=== PATIENT | female | born 1985 | race Caucasian/White ===

== ENCOUNTER 2016-08-19 18:34 | Inpatient (IN) | payer OTHER ==
[2016-08-19] MEDS ORDERED: EPSOM SALT 454 GM TP PRN (19:17)
[2016-08-19] MEDS ORDERED: LIDOCAINE 1% 30 ML SDV SC PRN (19:17)
[2016-08-19] MEDS ORDERED: OLIVE OIL 118 ML BTL MISC PRN (19:17)
[2016-08-19] MEDS ORDERED: OXYTOCIN/RINGERS LACTATE 1,000 ML IV PRN (19:17)
[2016-08-19] MEDS ORDERED: LR 1,000 ML IV PRN (19:17)
[2016-08-19] MEDS ORDERED: TERBUTALINE SULFATE 1 MG/ML VIAL IV PRN (19:17)
[2016-08-19] MEDS ORDERED: BETAMETHASONE IM SYRINGE IM ONE (19:20)
[2016-08-19 19:35] LABS: % IMMATURE GRANULYOCYTES 0.3 % (0.0-1.1); ABSOLUTE IMMATURE GRANULOCYTES 0.04 10^3/uL (0.00-0.10); ADD DIFF? NO; ADD MORPH? NO; ADD SCAN? NO; ATYPICAL LYMPHOCYTE FLAG 10 (0-99); FRAGMENT RBC FLAG 0 (0-99); HEMATOCRIT 36.9 % (38.0-47.0); HEMOGLOBIN 12.8 g/dL (12.6-16.3); LEFT SHIFT FLG 0 (0-99); LIPEMIA HEMOLYSIS FLAG 90 (0-99); MEAN CELL HEMOGLOBIN 30.9 pg (27.9-34.1); MEAN CELL HEMOGLOBIN CONCENTR. 34.7 g/dL (32.4-36.7); MEAN CELL VOLUME 89.1 fL (81.5-99.8); MEAN PLATELET VOLUME 11.7 fL (8.7-11.7); PLATELET CLUMPS FLAG 0 (0-99); PLATELET COUNT 176 10^3/uL (150-400); RED BLOOD CELL COUNT 4.14 10^6/uL (4.18-5.33); RED CELL DISTRIBUTION WIDTH 12.2 % (11.5-15.2)
[2016-08-19 19:49] LABS: ALANINE AMINOTRANSFERASE 29 IU/L (9-52); ASPARTATE AMINOTRANSFERASE 28 IU/L (14-46); BILIRUBIN,TOTAL 0.4 mg/dL (0.1-1.4); BILIRUBIN-CONJUGATED 0.2 mg/dL (0.0-0.5); BILIRUBIN-UNCONJUGATED 0.2 mg/dL (0.0-1.1); CREATININE 0.5 mg/dL (0.6-1.0); GLOMERULAR FILTRATION RATE > 60; LACTATE DEHYDROGENASE 420 IU/L (313-618); URIC ACID 4.7 mg/dL (2.5-6.8)
--- NOTE | 2016-08-19 20:26 | GHP ---
[f rep st] HISTORY AND PHYSICAL DATE OF ADMISSION: 08/19/2016 ADMISSION DIAGNOSES: 1. Intrauterine at 35-1/7 weeks' gestation. 2. premature rupture of membranes. HISTORY OF PRESENT ILLNESS: Patient is a 31-year-old, 1, para 0-0-1-0, who is 35-1/7 weeks' gestation. She was lying on her bed this evening and had a big gush of fluid. She has had continu al leaking since then and has been noted to be grossly ruptured. She was not having any contraction s until arriving to labor and deliver, she but she began having menstrual cramping. status is reassuring. She denies any vaginal bleeding and is having mild cramping. MEDICAL HISTORY: Significant for cervical dysplasia and a history of anxiety and depression in the past. PAST MEDICATIONS: vitamins and iron. SURGICAL HISTORY: LEEP excision of her cervix and appendectomy. ALLERGIES: No known drug allergies. SOCIAL HISTORY: Patient is . She denies tobacco, alcohol, and drug use. FAMILY MEDICAL HISTORY: Noncontributory. LOCAL [employer]IVER HISTORY: Menarche age 13. Periods every 28 days, lasting 5 days. She is a 1, para 0. has been uncomplicated. She has had some anxiety issues in but has been doi ng well recently. Patient does have a history of an abnormal Pap smear. She had a LEEP excision of her cervix in 2005 and repeat Pap's have been negative since then. Patient has a history of HPV bu t denies any history of any sexually transmitted diseases. REVIEW OF SYSTEMS: A 10-point review of systems is negative with the exception of the positive leak ing of fluid. She is stating good movement. Denies any headache, changes in vision, nausea, vomiting, fevers, or chills. PHYSICAL EXAMINATION: VITAL SIGNS: Stable. On presentation had blood pressure of 144/99, 146/104, and 150/103, but they have decreased now to 139/88 and 123/81. GENERAL APPEARANCE: Alert and orie nted x3. She does not appear to be in pain. PSYCH: Appropriate affect. NECK: Supple and there i s no thyromegaly. HEART: Rate is regular. LUNGS: Clear to auscultation bilaterally. ABDOMEN: G ravid, nondistended, nontender. EXTREMITIES: No calf tenderness or edema. PELVIC: Deferred. She is noted to be grossly ruptured. is in the vertex presentation. heart tracings are c ategory 1, and she is having only occasional contractions. LABORATORY: Blood type O positive, antibody screen negative, rubella immune, GBS is unknow n, HBsAg negative, HIV negative. Her 50 g glucose was 126. She did a serum alpha fetoprotein, whic h was negative and A Verifi screen which was negative. Preeclampsia labs were all negative. ASSESSMENT/PLAN: A 31-year-old, 1 para 0, at 35-1/7 weeks' gestation with premature rupture of membranes and borderline elevated blood pressures. Patient has received betamethasone x 1. A GBS culture was collected. She will be started on ampicillin for GBS unknown status, and will be managed expectantly. She will receive a 2nd dose of betamethasone at 24 hours, but obviously we will not do this if she has delivered before then. If her blood pressures are persistently elevate d, she will be augmented. /[id number]/MODL
[2016-08-19] MEDS ORDERED: LIDOCAINE 1% 30 ML SDV ONE (20:36)
[2016-08-19] MEDS ORDERED: AMMONIA AROMATIC 1 EACH AMP IH ONE (20:36)
[2016-08-19] MEDS ORDERED: TERBUTALINE SULFATE 1 MG/ML VIAL ONE (20:36)
[2016-08-19] MEDS ORDERED: MISOPROSTOL 200 MCG TAB ONE (20:36)
[2016-08-19] MEDS ORDERED: OLIVE OIL 118 ML BTL ONE (20:36)
[2016-08-19] MEDS ORDERED: OXYTOCIN 10 UNIT/ML VIAL ONE (20:36)
[2016-08-19] MEDS ORDERED: AMPICILLIN SODIUM 2 GM in NS 100 ML IV ONE (21:00)
[2016-08-19] MEDS ORDERED: PHENYLEPHRINE HCL 100 MCG/ML SYR ONE (22:26)
[2016-08-19] MEDS ORDERED: fentaNYL 2MCG/ML/BUP 0.1% RTU 100 ML BAG EP ONE (22:26)
[2016-08-19] MEDS ORDERED: LR 500 ML IV SCH (23:00)
[2016-08-19] MEDS ORDERED: fentaNYL 2MCG/ML/BUP 0.1% RTU 100 ML EP SCH (23:00)
--- NOTE | 2016-08-19 23:11 | OBPROG ---
OBG Progress Note Assessment/Plan: Assessment: Plan: Subjective: patient comfortable with epidural. progressed into active labor. status reassurign. BP's stable. Objective: 08/19/16 19:24 08/19/16 19:24 Patient ABO/Rh O POSITIVE 08/19/16 19:24 Uric Acid 4.7 mg/dL (2.5-6.8) 08/19/16 19:24 Total Bilirubin 0.4 mg/dL (0.1-1.4) 08/19/16 19:24 Conjugated Bilirubin 0.2 mg/dL (0.0-0.5) 08/19/16 19:24 Unconjugated Bilirubin 0.2 mg/dL (0.0-1.1) 08/19/16 19:24 AST 28 IU/L (14-46) 08/19/16 19:24 ALT 29 IU/L (9-52) 08/19/16 19:24 Lactate Dehydrogenase 420 IU/L (313-618) 08/19/16 19:24 - SVE Dilation (cm): 4, 5 Effacement (%): 100 Station: -1 Current Contraction Pattern: Regular FHR Pattern Variability: Moderate FHR Category: 1 Membranes: AROM Amniotic Fluid Color: Clear ICD10 Worksheet Patient Problems: Problems Problem Status Onset First stage of labor Acute premature rupture of membranes Acute
[2016-08-20] MEDS: AMPICILLIN SODIUM 1 GM in NS 100 ML IV SCH ×2 (00:04→09:53)
[2016-08-20] MEDS ORDERED: HYDROCORTISONE 0.5% CREAM TP PRN (01:03)
[2016-08-20] MEDS ORDERED: SIMETHICONE 80 MG TAB CHEW PO PRN (01:03)
[2016-08-20] MEDS ORDERED: ACETAMINOPHEN 325 MG TAB PO PRN (01:03)
--- NOTE | 2016-08-20 01:14 | OBPROG ---
OBG Progress Note Assessment/Plan: Assessment: Plan: Subjective: patient feeing much more pain in right buttock. positioned into hands and knees. pressure applied to area during contraction helps. status reassuring. Objective: 08/19/16 19:24 08/19/16 19:24 Patient ABO/Rh O POSITIVE 08/19/16 19:24 Uric Acid 4.7 mg/dL (2.5-6.8) 08/19/16 19:24 Total Bilirubin 0.4 mg/dL (0.1-1.4) 08/19/16 19:24 Conjugated Bilirubin 0.2 mg/dL (0.0-0.5) 08/19/16 19:24 Unconjugated Bilirubin 0.2 mg/dL (0.0-1.1) 08/19/16 19:24 AST 28 IU/L (14-46) 08/19/16 19:24 ALT 29 IU/L (9-52) 08/19/16 19:24 Lactate Dehydrogenase 420 IU/L (313-618) 08/19/16 19:24 - SVE Dilation (cm): 8 Effacement (%): 100 Station: +1 Current Contraction Pattern: Regular FHR (bpm): 120 FHR Pattern Variability: Moderate FHR Category: 1 Membranes: AROM Amniotic Fluid Color: Clear ICD10 Worksheet Patient Problems: Problems Problem Status Onset First stage of labor Acute premature rupture of membranes Acute
[2016-08-20] MEDS: IBUPROFEN 600 MG TAB PO PRN ×2 (09:58→17:11)
[2016-08-20] MEDS: DOCUSATE SODIUM 100 MG CAP PO PRN ×2 (09:59→21:36)
--- NOTE | 2016-08-20 10:13 | SOAPPROG ---
SOAP Progress Note Assessment/Plan: Assessment: ppd# 0 s/p will start pumping and breast feeding elevated blood pressures in labor - stable Plan: routine post care continue to monitor blood pressures 08/20/16 10:11 Subjective: patient is doing well. baby just came off cpap and is doing skin to skin with her. very happy with labor and delivery. pain is well controlled. did not get any sleep last night. normal lochia. denies headache and changes in vision. Objective: Vital Signs Temp Pulse Resp BP Pulse Ox 36.6 C 80 16 124/87 H 94 08/20/16 07:58 08/20/16 07:58 08/20/16 07:58 08/20/16 07:58 08/20/16 07:58 Laboratory Results 08/19/16 19:24 08/19/16 19:24 08/19/16 08/20/16 08/21/16 05:59 05:59 05:59 Output Total 200 Balance -200 Physical Exam - Physical Exam General Appearance: WD/WN, alert, no apparent distress Respiratory: chest non-tender, lungs clear, normal breath sounds Cardiac/Chest: normal peripheral pulses, regular rate, rhythm Abdomen: normal bowel sounds, non-tender, soft, other (fundus firm and non tender) Skin: normal color, warm/dry Extremities: normal range of motion, non-tender, normal inspection, normal capillary refill Neuro/Psych: no motor/sensory deficits, alert, normal mood/affect, oriented x 3 ICD10 Worksheet Patient Problems: Problems Problem Status Onset First stage of labor Acute premature rupture of membranes Acute
--- NOTE | 2016-08-20 10:25 | OBPROC ---
- Labor and Delivery Onset of Contractions Date: 08/20/16 Onset of Contractions Time: 20:30 Onset of Contractions Type: Spontaneous Rupture of Membranes Date: 08/20/16 Rupture of Membranes Time: 17:45 Rupture of Membranes Type: Spontaneous Amniotic Fluid Color: Clear Dilation Complete Time: 01:32 Delivery Type: Spontaneous Placenta Delivery Date: 08/20/16 Placenta Delivery Time: 02:45 Episiotomy/Laceration: 2nd Degree Repair: 3-0 - Medications Labor Augmentation/Induction Meds Used: None Anesthesia: Epidural - [place] Info Infant A Delivery Date: 08/20/16 Delivery Time: 02:38 Sex of Infant: Male Score (1 Min): 7 Score (5 Min): 8
[2016-08-21] MEDS: IBUPROFEN 600 MG TAB PO PRN ×3 (05:41→20:28)
--- NOTE | 2016-08-21 09:19 | SOAPPROG ---
SOAP Progress Note Assessment/Plan: Assessment: pain well managed scant rubra lochia doing well OK with going home tomorrow or to border perineum minimal swelling, approximated nipples intact/ pumping getting used to voiding without difficulty Plan:discharge to home or border tomorrow doing well 08/21/16 09:17 Subjective: Doing well. Denies pain. with assistance. Pumping nipples intact scant rubra lochia pain well managed voiding without difficulty feeling some rectal pressure pain after delivery discussed ways to assist perineum minimal swelling approximated Objective: Vital Signs Temp Pulse Resp BP Pulse Ox 36.6 C 66 16 128/88 H 98 08/20/16 20:01 08/20/16 20:01 08/20/16 20:01 08/20/16 20:01 08/20/16 20:01 Laboratory Results 08/19/16 19:24 08/19/16 19:24 08/20/16 08/21/16 08/22/16 05:59 05:59 05:59 Output Total 200 Balance -200 - Time Spent With Patient Time Spent With Patient: 15 minutes - Pending Discharge Pending Discharge Within 24 Hours: Yes Pending Discharge Date: 08/22/16 Pending Discharge Time: 11:00 ICD10 Worksheet Patient Problems: Problems Problem Status Onset Delivery normal Acute First stage of labor Acute premature rupture of membranes Acute
[2016-08-21] MEDS: DOCUSATE SODIUM 100 MG CAP PO PRN (09:30)
[2016-08-21] MEDS: HYDROCODONE/APAP 5/325 TAB PO PRN ×3 (09:31→20:26)
[2016-08-22] MEDS: HYDROCODONE/APAP 5/325 TAB PO PRN ×4 (05:43→17:49)
[2016-08-22] MEDS: DOCUSATE SODIUM 100 MG CAP PO PRN (08:48)
[2016-08-22 08:59] VITALS: BP 119/85; PULSE 77; RESP 16; TEMP 98.2; O2SAT 96
[2016-08-22] MEDS ORDERED: POLYETHYLENE GLYCOL 3350 17 GM PKT PO PRN (13:35)
[2016-08-22] MEDS ORDERED: LACTULOSE 20 GM/30 ML UDCUP PO PRN (13:35)
[2016-08-22] MEDS ORDERED: MAGNESIUM HYDROXIDE 30 ML UDCUP PO PRN (13:35)
[2016-08-22] MEDS ORDERED: BISACODYL 10 MG SUPP PR PRN (13:35)
--- NOTE | 2016-08-22 13:39 | OBPROG ---
OBG Progress Note Assessment/Plan: Assessment: 31 y/o PPD #2 s/p @ 35 weeks, SROM and PTD Plan: I ordered bowel protocol today, to try to help wit BM. She will be d/c home to [facility] status Rx [place] and Ibuprofen and follow-up @ [facility] 4 and 6 weeks. 08/22/16 13:39 Subjective: Pt is doing well this am. She is ambulating, voiding without difficulty and her pain is controlled with Ibuprofen and [place]. She has not had a BM yet and feels somewhat constipated. Her milk is coming in and she is nursing and pumping. Baby is doing well in NICU on room air. Under lights for bilirubin. She is ready to d/c to [facility]. Objective: 08/19/16 19:24 08/19/16 19:24 Patient ABO/Rh O POSITIVE 08/19/16 19:24 Uric Acid 4.7 mg/dL (2.5-6.8) 08/19/16 19:24 Total Bilirubin 0.4 mg/dL (0.1-1.4) 08/19/16 19:24 Conjugated Bilirubin 0.2 mg/dL (0.0-0.5) 08/19/16 19:24 Unconjugated Bilirubin 0.2 mg/dL (0.0-1.1) 08/19/16 19:24 AST 28 IU/L (14-46) 08/19/16 19:24 ALT 29 IU/L (9-52) 08/19/16 19:24 Lactate Dehydrogenase 420 IU/L (313-618) 08/19/16 19:24 Group B Strep DNA NEGATIVE (NEGATIVE) 08/19/16 19:00 Temp Pulse Resp BP Pulse Ox 36.8 C 77 16 119/85 H 96 08/22/16 08:20 08/22/16 08:20 08/22/16 08:20 08/22/16 08:20 08/22/16 08:20 Uterine Position/Fundal Height: Umbilicus -2 Uterine Tone: Firm - Physical Exam General Appearance: WD/WN, alert, no apparent distress Neck: non-tender, full range of motion, supple Respiratory: chest non-tender, lungs clear, normal breath sounds Cardiac/Chest: regular rate, rhythm Abdomen: normal bowel sounds Extremities: swelling (no), Lopez's sign (neg) ICD10 Worksheet Patient Problems: Problems Problem Status Onset Delivery normal Acute First stage of labor Acute premature rupture of membranes Acute
[2016-08-22] MEDS ORDERED: SENNOSIDES/DOCUSATE SODIUM TAB PO SCH (21:00)
== END 2016-08-22 17:50 | disposition home or self-care (01) | DRG 775 ==
LOC: FLD 18:34 → FOB 08-20 03:00
PROVIDERS: ADMIT Obstetrics & Gynecology; ATTEND Obstetrics & Gynecology
PROC: 0KQM0ZZ Repair Perineum Muscle, Open Approach (ICD-10-PCS; principal; 2016-08-19)
PROC: 10E0XZZ Delivery of Products of Conception, External Approach (ICD-10-PCS; principal; 2016-08-19)
DX: O42.913 Preterm premature rupture of membranes, unspecified as to length of time between rupture and onset of labor, third trimester (principal); O70.1 Second degree perineal laceration during delivery; Z3A.35 35 weeks gestation of pregnancy; Z37.0 Single live birth
CPT/HCPCS: J0290; J0702; J2370; J2590; J3105

== ENCOUNTER → 2017-05-08 | Outpatient (CLI) | payer OTHER | LOC: FIMAGING 07:32 | PROVIDERS: ATTEND Obstetrics & Gynecology | DX: O09.92 Supervision of high risk pregnancy, unspecified, second trimester (principal); O09.212 Supervision of pregnancy with history of pre-term labor, second trimester; Z3A.20 20 weeks gestation of pregnancy ==

== ENCOUNTER → 2017-05-24 | Outpatient (CLI) | payer OTHER | LOC: FIMAGING 08:38 | PROVIDERS: ATTEND Obstetrics & Gynecology | DX: O09.212 Supervision of pregnancy with history of pre-term labor, second trimester (principal); O09.292 Supervision of pregnancy with other poor reproductive or obstetric history, second trimester; Z3A.22 22 weeks gestation of pregnancy ==

== ENCOUNTER 2017-06-21 11:04 | Observation (INO) | payer OTHER | END 2017-06-21 12:30 | disposition home or self-care (01) | LOC: FLD 11:04 | PROVIDERS: ADMIT Advanced Practice Midwife; ATTEND Advanced Practice Midwife | DX: Z34.92 Encounter for supervision of normal pregnancy, unspecified, second trimester (principal); Z3A.26 26 weeks gestation of pregnancy | CPT/HCPCS: G0378 ==

== ENCOUNTER 2017-09-09 15:05 | Observation (INO) | payer OTHER ==
--- NOTE | 2017-09-09 17:58 | GHP ---
[f rep st] PREOP HISTORY AND PHYSICAL DATE OF ADMISSION: 09/09/2017 The patient is a 32-year-old, 2, para 0-1-0-1, who was 38 weeks gestation. Her estimated timothy e of confinement is 09/23/2017, dated by last menstrual period consistent with a 1st-trimester ultras ound. Patient was seen in the office last week and was told she was 5 cm dilated. She has been havi ng back pain that has been on and off today which is similar to how she began going into labor with h er 1st so she came in for evaluation. Her cervix was noted to be unchanged since her exam. She is called to be 4-5 cm and still thick and posterior. status was reassuring. She is hav ing contractions, but she is not breathing through them. status was category 1 and reassuring. Options reviewed to the let the patient stay here and recheck her in several hours versus sending t he patient home were discussed with the patient. The patient elected to go home. She was instructed to increase her fluid intake as it is very hot outside and she is somewhat dehydrated and to follow up in the office next week as scheduled. Labor precautions and kick counts were reviewed with the malcolm yoon. The patient was discharged to home. /[id number]/MODL
== END 2017-09-09 19:11 | disposition home or self-care (01) ==
LOC: FLD 15:05 → INTOOBSV 15:05
PROVIDERS: ADMIT Obstetrics & Gynecology; ATTEND Obstetrics & Gynecology
DX: M54.9 Dorsalgia, unspecified (principal); Z3A.38 38 weeks gestation of pregnancy
CPT/HCPCS: 59025; G0378

== ENCOUNTER 2017-09-16 09:28 | Inpatient (IN) | payer OTHER ==
--- NOTE | 2017-09-13 14:03 | GHP ---
[f rep st] HISTORY AND PHYSICAL DATE OF ADMISSION: 09/16/2017 ADMITTING DIAGNOSES: 1. Intrauterine at 39 weeks. 2. Elective induction of labor. HISTORY OF PRESENT ILLNESS: Patient is a 32-year-old 2, para 0-1-0-1, at 39 weeks with estimated due date 09/23/2017 by last menstrual period of 12/17, and consistent with first trimester ultrasound at 7 weeks and 1 day. The patient presents to Labor and Delivery for elective induction of labor. On cervical exam, she is 4-5 cm, 75% effaced, -2 station. Patient states good movement. Admits to irregular contractions, no leakage of fluid, and no vaginal bleeding. Patient has good care at [facility], and presented in her first trimester. Patient's is complicated by a previous history of delivery at 35 weeks and 1 day secondary to PPROM. Patient was on Marly, progesterone injections, through 36 weeks this and had stable cervical lengths up to 30 weeks via ultrasound. This is also a short interval, with her last delivery in July 2016. Patient has history of anxiety and depression, she declined Zoloft in this , but overall mood was stable. Patient has a history of a LEEP, with stable cervical length. The patient did receive Tdap. GBS culture is positive. PAST OB HISTORY: In July 2016, she delivered a viable male at 35 weeks 1 day, weighing 6 pounds 10 ounces, via vaginal delivery secondary to PPROM. PAST NURSING RESIDENT HISTORY: Age of menarche 13. Cycles are every 27-28 days for 4-5 days. LMP 12/17/2016. Positive test 01/17/2017. Patient has a history of abnormal Pap smear and had a LEEP in 2005. Subsequent Pap smears have been negative, including most recent one in October 2016. She also has a history of HPV in 2005. Declines exposure to any other STDs. CURRENT MEDICATIONS: vitamins, DHA. ALLERGIES: No known drug allergies. PAST MEDICAL HISTORY: Pyelonephritis at 5 years of age. Depression and anxiety. PAST SURGICAL HISTORY: Appendectomy at 15 years of age, LEEP in 2005. FAMILY HISTORY: Mother, chronic hypertension. Father, diverticulitis and kidney stones. Maternal grandmother, dementia and stroke. SOCIAL HISTORY: Patient is . She lives with her and their son. She is a homemaker. Denies any alcohol, tobacco, or current illicit drug use. LABS: Blood type is O positive, antibody negative. RPR nonreactive. Rubella immune. Hepatitis B surface antigen negative. HIV negative. Trio screen negative 2015. Pap, gonorrhea, and chlamydia cultures negative. AFP negative. Innatal screen negative. H and H 13.4 and 38.1. One-hour Glucola 82. GBS culture is positive. REVIEW OF SYSTEMS: 10-point review of systems negative. Pertinent positives noted in the HPI. PHYSICAL EXAMINATION: VITAL SIGNS: On admission, vital signs are stable. Patient is afebrile. GENERAL: Well-nourished, well-developed female, alert and oriented x3. SKIN: Warm, dry, no rash. CARDIOVASCULAR: Regular rate and rhythm. LUNGS: Clear to auscultation bilaterally. ABDOMEN: Gravid, soft, nontender, nondistended. PELVIC: Exam was deferred. EXTREMITIES: Normal to inspection without calf tenderness. Noted to have mild edema. ASSESSMENT AND PLAN: Patient is a 32-year-old 2, para 0-1-0-1, at 39 weeks, who presents for an elective induction of labor. 1. Admit to Labor and Delivery. 2. Will start Pitocin per protocol. 3. Will treat with antibiotics for group B streptococcus prophylaxis. 4. After adequate treatment for GBS prophylaxis will AROM. 5. Anticipate vaginal delivery. /[id number]/MODL MTDD
[2017-09-16] MEDS ORDERED: LIDOCAINE 1% 300 MG/30 ML SDV SC PRN (09:39)
[2017-09-16] MEDS ORDERED: EPSOM SALT 454 GM TP PRN (09:39)
[2017-09-16] MEDS ORDERED: IBUPROFEN 600 MG TAB PO PRN (09:39)
[2017-09-16] MEDS ORDERED: OLIVE OIL 118 ML BTL MISC PRN (09:39)
[2017-09-16] MEDS ORDERED: MISOPROSTOL 200 MCG TAB PR PRN (09:39)
[2017-09-16] MEDS ORDERED: AMPICILLIN SODIUM 2 GM in NS 100 ML IV ONE (09:39)
[2017-09-16] MEDS ORDERED: TERBUTALINE SULFATE 1 MG/ML VIAL IV PRN (09:39)
[2017-09-16] MEDS ORDERED: LR 1,000 ML IV PRN (09:39)
[2017-09-16] MEDS ORDERED: OXYTOCIN/RINGERS LACTATE 1,000 ML IV PRN (09:39)
[2017-09-16] MEDS ORDERED: TERBUTALINE SULFATE 1 MG/ML VIAL ONE (09:49)
[2017-09-16] MEDS ORDERED: OLIVE OIL 118 ML BTL ONE (09:49)
[2017-09-16] MEDS ORDERED: OXYTOCIN 10 UNIT/ML VIAL ONE (09:49)
[2017-09-16] MEDS ORDERED: LIDOCAINE 1% 300 MG/30 ML SDV ONE (09:49)
[2017-09-16] MEDS ORDERED: AMMONIA AROMATIC 1 EACH AMP IH ONE (09:49)
[2017-09-16] MEDS ORDERED: MISOPROSTOL 200 MCG TAB ONE (09:50)
[2017-09-16 10:12] LABS: PLATELET COUNT 165 10^3/uL (150-400)
[2017-09-16] MEDS ORDERED: OXYTOCIN/LR *STANDARD DOSE PROTOCOL IV SCH (10:30)
[2017-09-16] MEDS ORDERED: fentaNYL 100 MCG/2 ML INJ ONE (11:33)
[2017-09-16] MEDS ORDERED: PHENYLEPHRINE HCL 100 MCG/ML SYR ONE (11:34)
[2017-09-16] MEDS ORDERED: BUPIVACAINE 0.25% 30 ML SDV ONE (11:34)
--- NOTE | 2017-09-16 11:40 | PDANEPAE ---
ANE History of Present Illness at 39 weeks, in labor, dilated to 5 cm ANE Past Medical History - Cardiovascular History Hx Hypertension: No Hx Arrhythmias: No Hx Chest Pain: No Hx Coronary Artery / Peripheral Vascular Disease: No Hx CHF / Valvular Disease: No Hx Palpitations: No - Pulmonary History Hx COPD: No Hx Asthma/Reactive Airway Disease: No Hx Recent Upper Respiratory Infection: No Hx Oxygen in Use at Home: No Hx Sleep Apnea: No - Neurologic History Hx Cerebrovascular Accident: No Hx Seizures: No Hx Dementia: No - Endocrine History Hx Diabetes: No Hypothyroid: No Hyperthyroid: No Obesity: no - Renal History Hx Renal Disorders: No - Liver History Hx Hepatic Disorders: No - Neurological & Psychiatric Hx Hx Neurological and Psychiatric Disorders: No - Cancer History Hx Cancer: No - GI History GERD: no Hx Gastrointestinal Disorders: No - Chronic Pain History Chronic Pain: No - Surgical History Prior Surgeries: appendectomy ANE Review of Systems Review of Systems: ANE Patient History - Allergies Allergies/Adverse Reactions: No Known Allergies Allergy (Unverified 08/19/16 18:55) - Anes Hx Anes Hx: no prior problems - Smoking Hx Smoking Status: Never smoked Marijuana use: No - Alcohol Use Alcohol Use: Other (1 drink/day before ) - Family Anes Hx Family Anes Hx: none ANE Labs/Vital Signs - Labs Result Diagrams: 09/16/17 09:53 - Vital Signs Height: 154.94 cm Weight: 68.492 kg ANE Physical Exam - Airway Neck exam: FROM Mallampati Score: Class 1 Mouth exam: normal dental/mouth exam - Pulmonary Pulmonary: no respiratory distress - ASA Status ASA Status: II, E ANE Anesthesia Plan Anesthesia Plan: epidural (for labor)
[2017-09-16] MEDS ORDERED: fentaNYL 200 MCG, BUPIVACAINE 0.5% 20 ML in NS 100 ML EP SCH (12:00)
[2017-09-16] MEDS ORDERED: PHENYLEPHRINE HCL 100 MCG/ML SYR IVP PRN (12:08)
[2017-09-16] MEDS ORDERED: fentaNYL 2MCG/ML/BUP 0.1% RTU 100 ML EP SCH (12:30)
[2017-09-16] MEDS: AMPICILLIN SODIUM 1 GM in NS 100 ML IV SCH ×2 (13:44→20:13)
--- NOTE | 2017-09-16 14:36 | OBPROG ---
Labor Progress Note Assessment/Plan: Assessment: 32 y/o @ 39 weeks for elective IOL Plan: Cont current management s/p epidural, pt is comfortable Pitocin at 6 mu/min, cont per protocol s/p Amp x 2 for GBS prophylaxis AROM-large amount of clear fluid noted FHTs - Cat I tracing, reassuring Anticipate 09/16/17 14:42 Subjective/Intrapartum Course: 09/16/17 14:35 Pt is comfortable, s/p epidural but notes itching. Denies any HAs, visual changes, or RUQ/epigastric pain. Objective: 09/16/17 09:53 Patient ABO/Rh O POSITIVE 09/16/17 09:53 - SVE Dilation (cm): 5 (5-6) Effacement (%): 80 Station: -1 Membranes: AROM Amniotic Fluid Color: Clear - Contraction Pattern Assessment Current Contraction Pattern: Regular (q 2 min) - FHR Assessment Taylor FHR (bpm): 130 FHR Pattern Variability: Moderate FHR Category: 1 - Procedures Non-surgical Procedures: Amniotomy - AP Antepartum Course: 09/16/17 14:36 IUP @ 39 weeks for elective IOL; GBS+; previous PTD at 35 weeks-was on Marly in this thru 36 weeks; h/o LEEP with stable CL; h/o depression in college and anxiety on no meds 09/16/17 14:38 Oxytocin Orders Assessment - Pre-Induction/Augmentation Assessment Indication: Elective IOL Presentation: Vertex Gestational Age: 39 week(s) and 1 day(s) Gestational Age Determined By: Last Menstral Period (c/w first trimester u/s) Estimated Weight: 2501-3400g Membrane Status: Intact Current Contraction Pattern: Regular - Heart Rate Pattern Ty[place]or FHR Baseline (bpm): 130 FHR Category: 1 FHR Pattern Variability: Absent FHR Accelerations: Present - Khan's Score Dilation: 5-6cm Effacement: 60-70 Station: -2 Cervix: Soft Cervix Position: Mid Khan Score Total: 9 - Induction/Augmentation Consent Risks/Benefits of Procedure Reviewed/Pt Agrees to Proceed: Yes ICD10 Worksheet Patient Problems: Problems Problem Status Onset Group B streptococcal carriage complicating Acute Encounter for elective induction of labor Acute
--- NOTE | 2017-09-16 15:06 | PREANESOB ---
Obstetric Pre-Anesthesia Info - General Info Proposed Procedure: Labor epidural : 2 Para: 1 VIVIAN: 09/22/17 Gestational Age: 39 week(s) and 1 day(s) - Info Status: Full Term Monitors: External FHR Pattern: Reassuring - Labor Status Cervical Dilation per last OB SVE: 5 (5-6) Station per last OB SVE: -1 Amniotic Fluid Color: Clear PIH: No Magnesium Sulfate in Use: No Indications for Labor Analgesia: Pain Control Labor Epidural: Yes Anesthesia Allergies/Adverse Reactions: Allergy/AdvReac Type Severity Reaction Status Date / Time No Known Allergies Allergy Unverified 08/19/16 18:55 Home Medications: Medication Instructions Recorded Hydrocodone/APAP 5/325 [[place] 1 - 2 tab PO Q4HRS PRN #20 tab 08/22/16 5/325 (*)] Ibuprofen [Motrin (*)] 600 mg PO Q6HRS PRN #30 tab 08/22/16 Visit Medications: Generic Name Dose Route Start Last Admin Trade Name Freq PRN Reason Stop Dose Admin Ampicillin Sodium 1 gm/ Sodium 100 mls @ 200 mls/hr 09/16/17 13:45 09/16/17 13:44 Chloride IV 10/16/17 13:44 100 mls Q4H KALIE Administration Protocol Lactated Ringer's 1,000 mls @ 0 mls/hr 09/16/17 09:39 09/16/17 13:45 Lr IV 09/17/17 09:38 1,000 mls PRN PRN Administration SEE PROTOCOL CONDITIONS Protocol Per Protocol Oxytocin/Lactated Ringer's 1,000 mls @ 125 mls/hr 09/16/17 09:39 Pitocin 20 Units/Lr (Premix) IV PRN PRN Post bleeding Oxytocin/Lactated Ringer's 500 mls @ 0 mls/hr 09/16/17 10:30 Pitocin 30 Units/Lr (Premix) IV 03/15/18 10:29 CONT KALIE Protocol Per Protocol Fentanyl 200 mcg/ Bupivacaine 100 mls @ 0 mls/hr 09/16/17 12:00 HCl 20 ml/ Sodium Chloride EP 09/26/17 11:59 CONT [facility] Protocol As Directed Ibuprofen 600 mg 09/16/17 09:39 Motrin PO ONCE PRN post , pain Lidocaine HCl 300 mg 09/16/17 09:39 Lidocaine Hcl 1% SC 03/15/18 09:38 ONCE PRN episiotomy Magnesium Sulfate 454 gm 09/16/17 09:39 Epsom Salt TP 03/15/18 09:38 Q1H PRN perineal discomfort Misoprostol 800 - 1,000 mcg 09/16/17 09:39 Cytotec ID ONCE PRN Vaginal Atony/Bleeding Hatley Oil 118 ml 09/16/17 09:39 Sweet Oil MISC 03/15/18 09:38 ONCE PRN perineal massage Phenylephrine HCl 100 mcg 09/16/17 12:08 Neosynephrine IVP 03/15/18 12:07 .Q2M PRN Hypotension Terbutaline Sulfate 0.25 mg 09/16/17 09:39 Brethine IV 03/15/18 09:38 ONCE PRN Tachysystole Discontinued Medications Generic Name Dose Route Start Last Admin Trade Name Freq PRN Reason Stop Dose Admin Ammonia (Aromatic Spirit) Confirm 09/16/17 09:49 Ammonia Aromatic Administered 09/16/17 09:50 Dose 1 each IH .STK-MED ONE Bupivacaine HCl Confirm 09/16/17 11:34 Sensorcaine 0.25% Sdv Administered 09/16/17 11:35 Dose 30 ml .ROUTE .STK-MED ONE Fentanyl Confirm 09/16/17 11:33 Sublimaze Administered 09/16/17 11:34 Dose 100 mcg .ROUTE .STK-MED ONE Ampicillin Sodium 2 gm/ Sodium 110 mls @ 220 mls/hr 09/16/17 09:39 09/16/17 10:11 Chloride IV 09/16/17 10:08 110 mls ONCE ONE Administration Protocol Lidocaine HCl Confirm 09/16/17 09:49 Lidocaine Hcl 1% Administered 09/16/17 09:50 Dose 300 mg .ROUTE .STK-MED ONE Misoprostol Confirm 09/16/17 09:50 Cytotec Administered 09/16/17 09:51 Dose 1,000 mcg .ROUTE .STK-MED ONE Hatley Oil Confirm 09/16/17 09:49 Sweet Oil Administered 09/16/17 09:50 Dose 118 ml .ROUTE .STK-MED ONE Oxytocin Confirm 09/16/17 09:49 Pitocin Administered 09/16/17 09:50 Dose 40 unit .ROUTE .STK-MED ONE Phenylephrine HCl Confirm 09/16/17 11:34 Neosynephrine Administered 09/16/17 11:35 Dose 1,000 mcg .ROUTE .STK-MED ONE Terbutaline Sulfate Confirm 09/16/17 09:49 Brethine Administered 09/16/17 09:50 Dose 1 mg .ROUTE .STK-MED ONE - Vital Signs Height/Weight (Nursing): Height 154.94 cm Weight 68.492 kg Labs: 09/16/17 09:53 Patient ABO/Rh O POSITIVE 09/16/17 09:53
[2017-09-16] MEDS ORDERED: DOCUSATE SODIUM 100 MG CAP PO PRN (16:52)
[2017-09-16] MEDS ORDERED: HYDROCORTISONE 0.5% CREAM TP PRN (16:52)
[2017-09-16] MEDS ORDERED: SIMETHICONE 80 MG TAB CHEW PO PRN (16:52)
--- NOTE | 2017-09-16 16:56 | OBDEL ---
Info Type: Vaginal Presentation at Delivery: Vertex (NATHANIEL) L&D Analgesia/Anesthesia Type: Epidural GBS+: Yes Antibiotic Used for + GBS: Ampicillin (x 2) Intrapartum Medications: Generic Name Dose Route Start Last Admin Trade Name Freq PRN Reason Stop Dose Admin Ampicillin Sodium 1 gm/ Sodium 100 mls @ 200 mls/hr 09/16/17 13:45 09/16/17 13:44 Chloride IV 10/16/17 13:44 100 mls Q4H KALIE Administration Protocol Lactated Ringer's 1,000 mls @ 0 mls/hr 09/16/17 09:39 09/16/17 13:45 Lr IV 09/17/17 09:38 1,000 mls PRN PRN Administration SEE PROTOCOL CONDITIONS Protocol Per Protocol Discontinued Medications Generic Name Dose Route Start Last Admin Trade Name Freq PRN Reason Stop Dose Admin Ampicillin Sodium 2 gm/ Sodium 110 mls @ 220 mls/hr 09/16/17 09:39 09/16/17 10:11 Chloride IV 09/16/17 10:08 110 mls ONCE ONE Administration Protocol - Hospital Course Intrapartum: 09/16/17 14:35 Pt is comfortable, s/p epidural but notes itching. Denies any HAs, visual changes, or RUQ/epigastric pain. Indications for Delivery: Elective Vaginal Delivery - Delivery Provider Delivery Physician/CNM: Remedios Marcum - Labor and Delivery Onset of Contractions Date: 09/16/17 Onset of Contractions Time: 15:00 Onset of Contractions Type: Induced Rupture of Membranes Date: 09/16/17 Rupture of Membranes Time: 14:30 Rupture of Membranes Type: Artificial Amniotic Fluid Color: Clear Dilation Complete Date: 09/16/17 Dilation Complete Time: 16:16 Placenta Delivery Date: 09/16/17 Placenta Delivery Time: 16:42 Total Hours of Labor: 1 Non-surgical Procedures: Amniotomy Laceration: Other (Specify) (Superficial midline vaginal lac) Repair: Other (Specify) (none) Vaginal Sponge Count Correct: Yes Vaginal Needle Count Correct: Yes Vaginal Sweep Performed: Yes EBL: 250 cc Delivery Events: Other (Specify) (Compound presentation; tight limb cord-L ankle ) Delivery Comment: Uncomplicated - Medications Labor Augmentation/Induction Methods Used: Pitocin Labor Augmentation/Induction Indication: Elective [place] Data VIVIAN: 09/22/17 Gestational Age: 39 week(s) and 1 day(s) [place] Delivery Date: 09/16/17 Delivery Time: 16:37 Sex of Infant: Male Score (1 Min): 8 Score (5 Min): 9 ICD10 Worksheet Patient Problems: Problems Problem Status Onset Encounter for elective induction of labor Acute Group B streptococcal carriage complicating Acute (spontaneous vaginal delivery) Acute - ICD10 Problem Qualifiers (1) (spontaneous vaginal delivery)
--- NOTE | 2017-09-16 17:02 | POSTANESTH ---
Post Anesthetic Evaluation Cardiovascular Status: Normal, Stable Respiratory Status: Normal, Stable Level of Consciousness/Mental Status: Can Participate in Eval Pain Control: Adequate, Prn Tx Ordered Nausea/Vomiting Control: Adequate, Prn Tx Ordered Complications Possibly Related to Anesthesia: None Noted (Pt. reports excellent pain control from [facility] during labor.)
--- NOTE | 2017-09-16 17:08 | PDMN ---
Medical Necessity Medical necessity: C/M review: Patient meets INPT criteria under [facility] S-1180 Vaginal delivery: viable male . MD anticipates > 2 MN LOS for ongoing med nec for eval and TX of above.
[2017-09-16] MEDS: IBUPROFEN 600 MG TAB PO PRN (23:08)
[2017-09-17] MEDS: AMPICILLIN SODIUM 1 GM in NS 100 ML IV SCH ×4 (01:07→13:15)
[2017-09-17] MEDS: IBUPROFEN 600 MG TAB PO PRN ×3 (05:09→17:01)
[2017-09-17] MEDS: HYDROCODONE/APAP 5/325 TAB PO PRN ×2 (17:04→21:07)
--- NOTE | 2017-09-17 19:39 | OBPP ---
Progress Note Assessment/Plan: Assessment: 32 y/o PPD #1 s/p doing well Plan: She will try epsom salt sitz baths today. Ibuprofen prn. support and routine PPC. 09/17/17 19:38 Subjective/ Course: 09/17/17 19:36 Pt seen and examined @ 13:00 today. She is doing well without complaints. She is ambulating and voiding, has min lochia and cramping controlled with Ibuprofen. Breast feeding is going well and baby is doing well. She is having some pelvic pressure and feels edematous. Objective: 09/16/17 09:53 Patient ABO/Rh O POSITIVE 09/16/17 09:53 Temp Pulse Resp BP Pulse Ox 36.2 C 83 16 126/84 H 95 09/17/17 15:00 09/17/17 08:00 09/17/17 08:00 09/17/17 08:00 09/16/17 20:00 Uterine Position/Fundal Height: Umbilicus -2 Uterine Tone: Firm Physical Exam - Physical Exam General Appearance: alert, no apparent distress Neck: non-tender, full range of motion, supple Respiratory: chest non-tender, lungs clear, normal breath sounds Cardiac/Chest: regular rate, rhythm Abdomen: normal bowel sounds Extremities: swelling (no), Lopez's sign (neg)
[2017-09-18] MEDS: IBUPROFEN 600 MG TAB PO PRN ×3 (00:04→12:34)
[2017-09-18] MEDS: HYDROCODONE/APAP 5/325 TAB PO PRN ×3 (00:43→13:23)
--- NOTE | 2017-09-18 08:43 | OBGCSDC ---
General Delivery Information - General Info : 2 Para: 2 Abortions: 0 Type: Vaginal L&D Analgesia/Anesthesia Type: Epidural Admission Date: 09/16/17 Labs: Patient ABO/Rh O POSITIVE 09/16/17 09:53 Hct 36.4 % (38.0-47.0) L 09/16/17 09:53 - Hospital Course Antepartum: 09/16/17 14:36 IUP @ 39 weeks for elective IOL; GBS+; previous PTD at 35 weeks-was on [place] in this thru 36 weeks; h/o LEEP with stable CL; h/o depression in college and anxiety on no meds 09/16/17 14:38 Intrapartum: 09/16/17 14:35 Pt is comfortable, s/p epidural but notes itching. Denies any HAs, visual changes, or RUQ/epigastric pain. : 09/17/17 19:36 Pt seen and examined @ 13:00 today. She is doing well without complaints. She is ambulating and voiding, has min lochia and cramping controlled with Ibuprofen. Breast feeding is going well and baby is doing well. She is having some pelvic pressure and feels edematous. 09/18/17 08:42 S) Pt doing well, reports min pain and bleeding. she is ambulating and voiding without difficulty. She is . She desires discharge home today. O) VSS, afebrile constitutional: WNWF, A&Ox3 HEENT: normocephalic, atraumatic, supple Heart: RRR, No murmur Chest: CTA-B Abdomen: Soft, nontender Uterus: Firm at U-2 Lochia: Minimal rubra Perineum: Intact, healing well Extremities: Trace edema, and negative Lopez's sign Neuro: Grossly normal A) 32 year-old S/P PPD#2 P) Discharge home today Continue Pelvic rest x6wks Discussed danger signs (infection, preeclampsia, depression, heavy bleeding, etc) RTO in 4/6 weeks Vaginal - Delivery Provider Delivery Physician/CNM: Remedios Marcum - Diagnosis Labor: Induced Rupture of Membranes Type: Artificial Amniotic Fluid Color: Clear Laceration: Other (Specify) (Superficial midline vaginal lac) Repair: Other (Specify) (none) Delivery Events: Other (Specify) (Compound presentation; tight limb cord-L ankle ) - Procedures Non-surgical Procedures: Amniotomy - Delivery Non-surgical Procedures: Amniotomy EBL: 250 cc Data VIVIAN: 09/22/17 Gestational Age: 39 week(s) and 3 day(s) [place] Delivery Date: 09/16/17 Delivery Time: 16:37 Sex of Infant: Male [place] Weight (gm): 3764 g Score (1 Min): 8 Score (5 Min): 9 Discharge Information - Discharge Information Condition: Good Instruction/Follow Up: Four Weeks, Six Weeks
[2017-09-18 09:40] VITALS: BP 127/82
== END 2017-09-18 13:30 | disposition home or self-care (01) | DRG 775 ==
LOC: FLD 09:28 → FOB 18:31
PROVIDERS: ADMIT Obstetrics & Gynecology; ATTEND Obstetrics & Gynecology
PROC: 10E0XZZ Delivery of Products of Conception, External Approach (ICD-10-PCS; principal; 2017-09-16)
PROC: 3E033VJ Introduction of Other Hormone into Peripheral Vein, Percutaneous Approach (ICD-10-PCS; principal; 2017-09-16)
PROC: 0HQ9XZZ Repair Perineum Skin, External Approach (ICD-10-PCS; principal; 2017-09-16)
PROC: 10907ZC Drainage of Amniotic Fluid, Therapeutic from Products of Conception, Via Natural or Artificial Opening (ICD-10-PCS; principal; 2017-09-16)
DX: O70.0 First degree perineal laceration during delivery (principal); O99.820 Streptococcus B carrier state complicating pregnancy; O69.2XX0 Labor and delivery complicated by other cord entanglement, with compression, not applicable or unspecified; O99.343 Other mental disorders complicating pregnancy, third trimester; F41.8 Other specified anxiety disorders; Z3A.39 39 weeks gestation of pregnancy; Z37.0 Single live birth
CPT/HCPCS: J0290; J2370; J2590; J3010; J3105